=== PATIENT | female | born 1965 | race Caucasian/White ===

== ENCOUNTER 2017-01-07 05:54 | Emergency (ER) | payer OTHER ==
[~2017-01-07] VITALS: Ht 165.1 cm; Wt 106.6 kg
[2017-01-07 06:00] VITALS: TEMP 97.7; Ht 165.1 cm; Wt 106.6 kg
[2017-01-07] MEDS ORDERED: NO KNOWN MEDS (06:16)
--- NOTE | 2017-01-07 06:21 | ERPDOC ---
Departure Disposition Decision Date: January 07, 2017 Disposition Decision Time: 06:59 Disposition: 01 DISCHARGED HOME, SELF-CARE Impression Impression Impression: Primary Impression: Sciatica Laterality: right Qualified Codes: M54.31 - Sciatica, right side Additional Impression: Right hip pain Severity: Mild Condition: Improved Seen By: Physician only Referrals: ISAC MARROQUIN DO (Family) 1 Day Patient Instructions: Hip Pain (ED), Sciatica (ED) Problems/Meds/Labs Reviewed?: Yes Medications reviewed and manag: Yes Follow up care ordered?: Yes Mental Status: Alert, Oriented Scripts Ibuprofen (Ibuprofen) 800 Mg Tablet 1 TAB PO Q8H Y for PAIN, #20 TAB 0 Refills Prov: STEPHEN RYAN DO 01/07/17 Cyclobenzaprine HCl (Cyclobenzaprine HCl) 10 Mg Tablet 1 TAB PO TID for PAIN &/OR SPASM, #15 TAB 0 Refills Prov: STEPHEN RYAN DO 01/07/17 Methylprednisolone (Medrol) 4 Mg Tab.ds.pk 4 MG PO DIRECTED for INFLAMMATION, #1 0 Refills Prov: STEPHEN RYAN DO 01/07/17 Hydrocodone/Acetaminophen ([place] 5-325 Tablet) 5-325 Tablet 1 TAB PO Q4-6H for pain, #12 TAB 0 Refills Prov: STEPHEN RYAN DO 01/07/17 HPI - Lower Extremity General Chief Complaint: Lower Extremity Pain Stated Complaint: RIGHT HIP PAIN Time Seen by Provider: 06:12 Source: patient (Patient presents to the ER with Right hip pain for 2 weeks. Patient denies low back pain. Patient denies injury, and has been utilizing a chiropractor. Apparently, the pain intensified this weekend, prompting a vsit to the ER) Exam Limitations: no limitations HPI - Lower Extremity Occurred At: home Onset/Timing: Changing over time Duration: other (2 weeks) Pain/Severity Scale: Now & Worst: 8/10 Pain/Injury Location: right hip Method of Injury: unknown Modifying Factors/Context: IMPROVES WITH: immobilization, pain medication, rest , WORSE WITH: movement Quality: aching, sharpness, other Allergies: Coded Allergies: No Known Allergies (Unverified , 01/07/17) Past History Past Medical History Pt denies signifigant PMH Hx Echocardiogram: No Surgical History General: tonsils Reproductive/: hysterectomy, tubal ligation Family History Family PMH: FOUND: other Vaccines Hx Influenza Vaccination: No Hx Pneumococcal Vaccination: No Social History Smoking Status: Current every day smoker Does patient use chewing tobac: No # of Packs/Tins per Day: 1 # of Years: 25 Substance Use Type: does not use Alcohol Intake: none Marital Status: Sexuality: male partner Housing: house Household Members: spouse Service: No Occupational Hazard: No Advance Directives: Yes Full Code Record Review Pertinent history updated: Yes Review of Systems Constitutional Constitutional: DENIES: chills, fever Eyes Lids/Accessories: DENIES: erythema, swelling ENMT Ears: DENIES: erythema, pain Balance: DENIES: ataxia, vertigo Sinuses: DENIES: congestion, rhinorrhea Mouth/Throat: DENIES: sore throat Cardiovascular Cardiac: DENIES: chest pain, dyspnea on exertion, orthopnea Rhythm/Rate: DENIES: tachycardia Pulmonary Respiratory: DENIES: cough, dyspnea, sputum GI Upper Abdomen: DENIES: nausea, pain, vomiting Lower Abdomen: DENIES: constipation, diarrhea, pain General: DENIES: dysuria Musculoskeletal General: DENIES: cramps, pain, weakness Integumentary Skin: DENIES: color change, itching, rash Neurological General: DENIES: ataxia, change in strength, headache, numbness, poor coordination, seizures, syncope, vertigo, weakness Psychiatric Psychiatric: DENIES: anxiety, depression, nervousness Hematologic/Lymphatic Hematologic/Lymphatic: DENIES: anemia Allergic/Immunological Allergic/Immunoligical: DENIES: sneezing All other Systems All Other Systems: Reviewed and Negative Physical Exam General General Nourishment: well nourished, well developed, appears stated age, adult General Body Habitus: well groomed Vitals and Pain First Documented Vital Signs Date Time Temp Pulse Resp B/P Pulse Ox O2 Delivery O2 Flow Rate FiO2 01/07/17 06:00 97.7 80 20 152/81 95 Room Air Weight: Kilograms: 106.600 Height (feet): 5 Height (inches): 5.00 Triage Pain Scale: RN VS reviewed by Provider: Yes Eyes (brief) Eyes Brief: found: EOMI, PERRL ENMT (brief) ENMT Brief: FOUND: mucosa moist Neck (brief) Neck: FOUND: trachea midline, NOT FOUND: tenderness, tracheal deviation Respiratory (brief) Respiratory: FOUND: clear all adair, equal bilaterally Cardiovascular (brief) Cardiac: FOUND: regular rate, regular rhythm Capillary Refill: <2 sec Pulses: all distal extremities, equal, strong Abdomen (brief) Abdominal Brief: FOUND: bowel normo active x4, soft, NOT FOUND: distended, tender Lymphatic (brief) Lymphatic Brief: NOT FOUND: adenopathy Musculoskeletal (brief) Musculoskeletal Brief: FOUND: other (Pain right hip and SI joint, consistant with sciatica. Patient denies Loos or changes in bladder or bowel control, nor fevers, not epidural injuections, no IV drug use, no saddle anesthesia. ), tenderness (Right hip with palpation and ROM. Patient denies low back pain. No mid-line vertebral tenderness. ), NOT FOUND: spasm Integumentary (brief) Integumentary Brief: FOUND: other (Distal pulses (+)2, capillary refill less than 2 seconds in all extremities. Guillermo's negative bilaterally), pink, warm Neurologic (brief) Neurological Brief: FOUND: CN w/o gross def to obs, DTR 2/4 all extremities, gait w/o gross def to obs, motor-no gross deficits, sensory-no gross deficits, NOT FOUND: ataxia Psychiatric (brief) Psychiatric Brief: FOUND: alert, attentive, normal affect, oriented Differential Diagnoses Considering: Fracture, Sprain, Strain, Other (sciatica) Progress Results/Orders Orders Procedure Category Date Status Time Hip Right 2 View RAD 01/07/17 Taken Ketorolac (Toradol) PHA 01/07/17 Complete 06:30 Orphenadrine (Norflex) PHA 01/07/17 Complete 06:30 Medications Current ED Medications Ketorolac Tromethamine (Toradol) 60 mg O ONCE IM Last administered on 06:28; Start 01/07/17 at 06:30; Stop 01/07/17 at 06:31; Status DC Orphenadrine Citrate (Norflex) 60 mg O ONCE IM Last administered on 01/07/17 06:28; Start 01/07/17 at 06:30; Stop 01/07/17 at 06:31; Status DC Progress Progress Patient's Pain is improving with medications, patient is wanting to go home Patient to follow with her PCP, returning to the ER as needed Xray Xray : Reason for Exam: Right hip pain Xray: Hip R Interpretation: Normal, Interpreted by Me (DJD, otherwisw negative) STEPHEN RYAN DO January 07, 2017 06:21
--- NOTE | 2017-01-07 06:28 | NUR ---
MEDS TORADOL AND NORFLEX GIVEN IM FOR RT. HIP PAIN.
[2017-01-07] MEDS ORDERED: KETOROLAC 60mg/2ml INJECTION IM ONE (06:30)
[2017-01-07] MEDS ORDERED: ORPHENADRINE 60mg/2ml INJECTION IM ONE (06:30)
--- NOTE | 2017-01-07 06:35 | NUR ---
XRAY PT. TO XRAY.
--- NOTE | 2017-01-07 06:44 | NUR ---
XRAY PT. RETURNED FROM XRAY.
[2017-01-07] MEDS ORDERED: IBUP-1547 PO (07:04)
[2017-01-07] MEDS ORDERED: METH4TAB3 PO (07:04)
[2017-01-07] MEDS ORDERED: HYDR-4246 PO (07:04)
[2017-01-07] MEDS ORDERED: CYCL-375 PO (07:04)
--- NOTE | 2017-01-07 07:15 | NUR ---
DISMISSAL NOTE DISMISSAL INSTRUCTIONS GIVEN TO PT. AND NO FURTHER QUESTIONS. PT. LEFT ED AMBULATORY WITH . MADE THE COMMENT THAT SHE WAS WALKING BETTER.
[2017-01-07 07:26] VITALS: BP 137/66; PULSE 72; RESP 18; O2SAT 95
--- NOTE | 2017-01-07 08:06 | DI ---
Indication: ITS.REASON: Right hip pain PROCEDURE: HIP RIGHT 2 VIEW: Encounter: Initial Comparison: None Findings: There is no acute fracture, dislocation or malalignment identified. No definite effusion. Impression: No acute osseous abnormality. .
== END 2017-01-07 07:15 | disposition home or self-care (01) ==
LOC: ED 05:54
DX: M25.551 Pain in right hip (principal); M54.31 Sciatica, right side
CPT/HCPCS: 73502; 96372; 99283; J1885; J2360